=== PATIENT | female | born 1995 | race Hispanic/Latino ===

== ENCOUNTER 2020-09-14 10:30 | Emergency (ER) | payer MEDICAID ==
[2020-09-14] MEDS ORDERED: SODIUM CHLORIDE 0.9% 1000 ML 1,000 ML IV ONE (10:53)
[2020-09-14] MEDS ORDERED: ACETAMINOPHEN 500 MG TAB PO ONE (10:59)
[2020-09-14] MEDS ORDERED: TOPIRAMATE TAB 200 MG TAB PO SCH (11:00)
--- NOTE | 2020-09-14 11:03 | Emergency Department Report ---
ED Seizure HPI - General Chief Complaint: Seizure Stated Complaint: SEIZURE LIKE ACTIVITY Time Seen by Provider: 09/14/20 10:43 Source: EMS Mode of arrival: Wheelchair Limitations: No Limitations - History of Present Illness Initial Comments: Patient is 25 years old female with history of seizure currently on Topamax however patient stated that she is not taking her medication since she left her home in [facility]. 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 Patient brought to the emergency room via EMS for evaluation of 2 witnessed seizure this morning. Patient denied any injury. Upon arrival to the ER patient was completely alert, oriented x3 in no acute distress. Patient is complaining of mild headache and stated that she usually have headache after the seizure. Patient denied any focal weakness numbness or tingling sensation. No neck pain or injury. MD Complaint: seizure -: Sudden Description of Episode: loss of consciousness, tonic-clonic movement, post-event confusion Witnessed:: Yes Trauma: No Seizure History: known seizure disorder Possible Precipitating Event: none Associated Symptoms: denies other symptoms Treatments Prior to Arrival: none - Related Data Allergies Allergy/AdvReac Type Severity Reaction Status Date / Time ceftriaxone [From Rocephin] AdvReac Anaphylaxis Verified 09/14/20 10:51 citalopram [From Celexa] AdvReac Unknown Verified 09/14/20 10:51 oxcarbazepine AdvReac Hives Verified 09/14/20 10:51 [From Trileptal] ED Review of Systems ROS: Stated complaint: SEIZURE LIKE ACTIVITY Other details as noted in HPI Comment: All other systems reviewed and negative Constitutional: denies: chills, fever Respiratory: denies: cough, shortness of breath, SOB with exertion, SOB at rest, wheezing Cardiovascular: denies: chest pain, palpitations Gastrointestinal: denies: abdominal pain, nausea, vomiting, diarrhea, constipation, hematemesis, melena, hematochezia Musculoskeletal: denies: back pain Neurological: headache. denies: weakness, numbness, paresthesias, confusion, abnormal gait Psychiatric: denies: depression, suicidal thoughts ED Past Medical Hx - Past Medical History Hx Hypertension: Yes (Preeclampsia) Hx Seizures: Yes Additional medical history: Depression - Surgical History Past Surgical History?: No - Social History Smoking Status: Current Every Day Smoker Substance Use Type: None ED Physical Exam - General Limitations: No Limitations General appearance: alert, in no apparent distress - Head Head exam: Present: atraumatic, normocephalic, normal inspection - Eye Eye exam: Present: normal appearance - ENT ENT exam: Present: normal exam, normal orophraynx, mucous membranes moist - Neck Neck exam: Present: normal inspection, full ROM. Absent: tenderness, meningismus, lymphadenopathy, thyromegaly - Respiratory Respiratory exam: Present: normal lung sounds bilaterally - Cardiovascular Cardiovascular Exam: Present: regular rate, normal rhythm, normal heart sounds - GI/Abdominal GI/Abdominal exam: Present: soft, normal bowel sounds. Absent: distended, tenderness, guarding, rebound, rigid, organomegaly, mass, bruit, pulsatile mass, hernia - Extremities Exam Extremities exam: Present: normal inspection, full ROM, normal capillary refill. Absent: pedal edema, calf tenderness - Back Exam Back exam: Present: normal inspection, full ROM. Absent: CVA tenderness (R), CVA tenderness (L) - Neurological Exam Neurological exam: Present: alert, oriented X3, CN II-XII intact - Psychiatric Psychiatric exam: Present: normal mood - Skin Skin exam: Present: warm, intact, normal color ED Course Vital Signs 09/14/20 09/14/20 09/14/20 10:52 11:00 11:30 Temperature 98.1 F Pulse Rate 77 76 65 Respiratory 12 25 H 21 Rate Blood Pressure 126/68 126/64 Blood Pressure 116/73 [Left] O2 Sat by Pulse 98 99 Oximetry 09/14/20 09/14/20 12:00 12:30 Temperature Pulse Rate 70 72 Respiratory 18 15 Rate Blood Pressure 126/73 126/66 Blood Pressure [Left] O2 Sat by Pulse 98 99 Oximetry ED Medical Decision Making - Lab Data Result diagrams: 09/14/20 11:01 09/14/20 11:01 - Medical Decision Making Patient is 25 years old female with history of seizure currently on Topamax however patient stated that she is not taking her medication since she left her home in [facility]. 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 Patient brought to the emergency room via EMS for evaluation of 2 witnessed seizure this morning. Patient denied any injury. Upon arrival to the ER patient was completely alert, oriented x3 in no acute distress. Patient is complaining of mild headache and stated that she usually have headache after the seizure. Patient denied any focal weakness numbness or tingling sensation. No neck pain or injury. Patient remained seizure-free. Patient received Topamax 200 mg p.o. x1. Labs reviewed and is unremarkable. Patient given prescription for Topamax and advised to follow-up with her neurologist as soon as possible. Patient also advised to return to the ER if she develop any new symptoms. Critical care attestation.: If time is entered above; I have spent that time in minutes in the direct care of this critically ill patient, excluding procedure time. ED Disposition Clinical Impression: Seizure Disposition: [id number] PSY HOSP/PSY UNIT Is pt being admited?: No Condition: Stable Instructions: Seizure, Adult, [id number] Referrals: PRIMARY CARE, [Primary Care Provider] - 3-5 Days
[2020-09-14 11:23] LABS: Basophils % (Auto) 0.3 % (0.0-1.8); Eosinophils # (Auto) 0.2 K/mm3 (0.0-0.4); Eosinophils % (Auto) 1.8 % (0.0-4.3); Hematocrit 39.3 % (30.3-42.9); Hemoglobin 13.2 gm/dl (10.1-14.3); Lymphocytes # (Auto) 1.9 K/mm3 (1.2-5.4); Lymphocytes % (Auto) 21.5 % (13.4-35.0); Mean Corpuscular HGB Conc 34 % (30-34); Mean Corpuscular Volume 85 fl (79-97); Monocytes # (Auto) 0.8 K/mm3 (0.0-0.8); Monocytes % (Auto) 9.3 % (0.0-7.3); Platelet Count 225 K/mm3 (140-440); Red Blood Count 4.64 M/mm3 (3.65-5.03); Red Cell Distribution Width 14.4 % (13.2-15.2)
[2020-09-14 11:41] LABS: Alanine Aminotransferase 95 units/L (7-56); Albumin 3.8 g/dL (3.9-5); Blood Urea Nitrogen 13 mg/dL (7-17); Calcium 9.1 mg/dL (8.4-10.2); Hemolysis Index 6
[2020-09-14 11:50] LABS: BUN/Creatinine Ratio 22; Bilirubin,Direct < 0.2 mg/dL (0-0.2)
[2020-09-14 12:59] LABS: Bilirubin,Urine NEG (Negative); Blood,Urine LG (Negative); Color,Urine Yellow (Yellow); Mucus,Urine FEW /HPF; Protein,Urine <15 mg/dL mg/dL (Negative); Urobilinogen,Urine < 2.0 mg/dL (<2.0)
[2020-09-14 14:22] VITALS: BP 132/76
== END 2020-09-14 15:08 ==
LOC: ED 10:30
DX: R56.9 Unspecified convulsions (principal); F32.9 Major depressive disorder, single episode, unspecified; I10 Essential (primary) hypertension; F17.200 Nicotine dependence, unspecified, uncomplicated; Z88.8 Allergy status to other drugs, medicaments and biological substances
CPT/HCPCS: 36415; 80048; 80076; 81001; 84703; 85025; 96360; 99284; J7030